=== PATIENT | male | born 1970 | race Caucasian/White ===

== ENCOUNTER 2019-09-09 08:43 | Outpatient (CLI) | payer OTHER ==
[2019-09-09 09:42] LABS: eGFR (Non-African) > 60
[2019-09-09 09:43] LABS: HDL 38 mg/dL (>40)
== END 2019-09-09 08:48 ==
LOC: LAB 08:43
PROVIDERS: ATTEND Family Medicine
DX: E78.5 Hyperlipidemia, unspecified (principal)
CPT/HCPCS: 36415; 80053; 80061